=== PATIENT | female | born 1950 | race Asian ===

== ENCOUNTER → 2022-02-15 | Outpatient (CLI) | payer OTHER | END | disposition home or self-care (01) | LOC: RADMN 13:08 | PROVIDERS: ATTEND Internal Medicine | DX: I67.82 Cerebral ischemia (principal); R94.01 Abnormal electroencephalogram [EEG]; J34.89 Other specified disorders of nose and nasal sinuses; I63.9 Cerebral infarction, unspecified | CPT/HCPCS: 70551; 95816 ==